=== PATIENT | female | born 1960 | race Two or more races ===

== ENCOUNTER 2024-08-31 06:49 | Day surgery (SDC) | payer BC, SELFPAY ==
[2024-08-27 14:02] VITALS: BMI 22.6
--- NOTE | 2024-08-30 08:43 | HO.ANESPROP2 ---
Documented by User: Ciarra Anglin NP 08/30/24 08:43 HPI - Anesthesia Eval Consult details Narrative: 64yo F [facility] Past Medical History Medical History Elevated cholesterol HTN (hypertension) Surgical History Surgical History H/O colonoscopy Social History Social History (Updated 08/27/24 @ 14:04 by Alberta Sosa RN) Household Members: Spouse Are you a primary geriatric care manager to a significant other at home: No Do you presently have visiting nurse or other home services: No Patient Tobacco Use Status: Never used Tobacco Have you been hit, kicked, punched, or otherwise hurt by someone within the past year? If so, by whom?: No Are you DNR?: No Advance Directives: No Advance Directives Information Provided: Yes Recently lost weight without trying: No Nutrition Risks: No Nutritional Risk Meds Allergies Allergy/AdvReac Type Severity Reaction Status Date / Time aspirin Allergy Unknown Unknown Verified 08/31/24 06:59 Sulfa (Sulfonamide Allergy Unknown Unknown Verified 08/31/24 06:59 Antibiotics) Home Medications ?Medication ?Instructions ?Recorded ?Confirmed ?Last Taken ?Type amlodipine 10 mg tablet 10 mg PO DAILY 08/27/24 08/27/24 08/31/24 History atorvastatin 10 mg tablet 10 mg DAILY 08/27/24 08/27/24 Unknown History calcium carbonate 500 mg PO DAILY 08/27/24 08/27/24 Unknown History levothyroxine 50 mcg tablet 50 mcg DAILY 08/27/24 08/27/24 Unknown History (Synthroid) lisinopril 5 mg tablet 5 mg DAILY 08/27/24 08/27/24 08/31/24 History multivitamin 1 tab PO DAILY 08/27/24 08/27/24 Unknown History Exam Height,Weight and Vital Signs: Height 5 ft 6 in Weight 63.503 kg Assessment and Plan Assessment Anesthesia Assessment: Chart Reviewed Documented by User: Gigi Fall MD 08/31/24 08:45 [facility] Past Medical History Medical History Elevated cholesterol HTN (hypertension) Family History Family history of problems with anesthesia: No Surgical History Surgical History H/O colonoscopy History of Problems with Anesthesia: No Social History Social History (Updated 08/27/24 @ 14:04 by Alberta Sosa RN) Household Members: Spouse Are you a primary geriatric care manager to a significant other at home: No Do you presently have visiting nurse or other home services: No Patient Tobacco Use Status: Never used Tobacco Have you been hit, kicked, punched, or otherwise hurt by someone within the past year? If so, by whom?: No Are you DNR?: No Advance Directives: No Advance Directives Information Provided: Yes Recently lost weight without trying: No Nutrition Risks: No Nutritional Risk Meds Allergies Allergy/AdvReac Type Severity Reaction Status Date / Time aspirin Allergy Unknown Unknown Verified 08/31/24 06:59 Sulfa (Sulfonamide Allergy Unknown Unknown Verified 08/31/24 06:59 Antibiotics) Home Medications ?Medication ?Instructions ?Recorded ?Confirmed ?Last Taken ?Type amlodipine 10 mg tablet 10 mg PO DAILY 08/27/24 08/27/24 08/31/24 History atorvastatin 10 mg tablet 10 mg DAILY 08/27/24 08/27/24 Unknown History calcium carbonate 500 mg PO DAILY 08/27/24 08/27/24 Unknown History levothyroxine 50 mcg tablet 50 mcg DAILY 08/27/24 08/27/24 Unknown History (Synthroid) lisinopril 5 mg tablet 5 mg DAILY 08/27/24 08/27/24 08/31/24 History multivitamin 1 tab PO DAILY 08/27/24 08/27/24 Unknown History Exam Airway Loose/Missing/Broken Teeth: No Assessment and Plan Assessment Anesthesia Assessment: Anesthesia Plan Discussed Final Anesthetic Review Family History of Problems with Anesthesia: No History of Problems with Anesthesia: No NPO: Yes ASA Class: II Final Preanesthetic Review: No Changes in Pt Med Stat, Meds/Allgs Chart Reviewed, Consent Obtained/Reviewed and Anes Risks/Benef Reviewed Patient Risk: Low Procedure Risk: Low Anesthetic Plan Anesthetic Plan: MAC: Disposition: Standard PACU
[2024-08-31 06:59] VITALS: BMI 22.7
[2024-08-31] MEDS: Lactated Ringers 1,000 ML 100 ML IVCONT (07:11)
[2024-08-31 07:18] VITALS: BP 134/87; PULSE 58; RESP 18; TEMP 36.7; O2SAT 100
--- NOTE | 2024-08-31 07:29 | MHC.SHP ---
Pre-Procedural Eval Section A - 24 Hr Update-Section A only Date of Service: 08/31/24 Section B - Complete if H&P > 30 days Chief Complaint: screening Details of Present Illness: see H&P no changes Relevant Family History (Specify if Yes): No Relevant Social History: None Present Medications: see Short Stay Collaborative assessment Medical History: No relevant PMH History of Previous Operations: No relevant previous surgery Allergies: Allergies Allergy/AdvReac Type Severity Reaction Status Date / Time aspirin Allergy Unknown Unknown Verified 08/31/24 06:59 Sulfa (Sulfonamide Allergy Unknown Unknown Verified 08/31/24 06:59 Antibiotics) Review of Systems Sugical H&P ROS: Negative: Constitution, Cardiovascular, Respiratory, Neurological, Psychiatric, Hem-Onc, Allergic/Immunologic, Gastrointestinal, Genitourinary, Musculoskeletal, Integumentary, Endocrine and Eyes/Ears/Nose/Throat Exam Surgical H&P Exam: Normal: HEENT, Normal: Heart, Normal: Lungs, Normal: Extremities, Normal: Abdomen, Normal: Skin and Normal: Neurological Plan Diagnosis/Plan: Unchanged I have reviewed the history and physical and performed a pertinent physical examination on my patient. No changes have occurred unless specified. Time Spent With Patient Time: Total time managing care of this patient today ____ minutes.
[2024-08-31 08:25] VITALS: BP 96/55; PULSE 58; RESP 20; TEMP 36.1; O2SAT 100
[2024-08-31 08:43] VITALS: BP 117/65; PULSE 57; RESP 14; TEMP 36.2; O2SAT 100
--- NOTE | 2024-08-31 08:51 | OP_ITS ---
DATE OF SERVICE: 08/31/2024 SURGEON: Boone Khoury MD INDICATIONS: Colon cancer screening. PREOPERATIVE DIAGNOSIS: POSTOPERATIVE DIAGNOSIS: PROCEDURE PERFORMED: Colonoscopy to the terminal ileum with biopsy. ESTIMATED BLOOD LOSS: COMPLICATIONS: ANESTHESIA: Monitored anesthesia care. ASSISTANTS: SPECIMENS: DESCRIPTION OF PROCEDURE: A history and physical performed. The risks and benefits of the procedure were explained to the patient. Informed consent was obtained. The patient was placed in the left lateral decubitus position. A digital rectal exam was performed and showed external hemorrhoids. The Olympus pediatric videocolonoscope was introduced into the rectum and advanced to the cecum. The cecum was identified by transillumination, palpation, and identification of ileocecal valve. Examination was performed. The scope was removed. She tolerated the procedure well and was taken to recovery room in stable condition. FINDINGS: The terminal ileum was examined and appeared normal. The visualized colonic mucosa was normal. The quality of the prep was excellent. A single polyp measuring less than 5 mm was identified in the cecum and removed using a biopsy forceps. No other polyps were identified. There was mild sigmoid diverticulosis. Retroflexed examination showed some small internal hemorrhoids. IMPRESSION: Colon polyp. RECOMMENDATION: Follow up the biopsy results. MD CARLOS Marroquin/MODL / [id number]
== END 2024-08-31 08:59 | disposition home or self-care (01) ==
PROVIDERS: PCP Family Medicine; Visit Provider Internal Medicine Gastroenterology
PROC: 0DJD8ZZ Inspection of Lower Intestinal Tract, Via Natural or Artificial Opening Endoscopic (ICD-10-PCS; CPT 45378; principal; 2024-08-31 07:30)
DX: Z12.11 Encounter for screening for malignant neoplasm of colon (principal); D12.0 Benign neoplasm of cecum; K57.30 Diverticulosis of large intestine without perforation or abscess without bleeding; K64.8 Other hemorrhoids; I10 Essential (primary) hypertension; E78.5 Hyperlipidemia, unspecified; E03.9 Hypothyroidism, unspecified; Z79.899 Other long term (current) drug therapy; Z88.2 Allergy status to sulfonamides; Z88.6 Allergy status to analgesic agent
CPT/HCPCS: 45380; 88305; J2003; J2704